=== PATIENT | female | born 1995 | race Hispanic/Latino ===

== ENCOUNTER 2018-09-30 15:25 | Inpatient (IN) | payer MEDICAID, OTHER, SELFPAY ==
[2018-09-30 16:18] VITALS: BMI 36.8
[2018-09-30] MEDS ORDERED: hydrALAZINE 20 MG/ML VIAL SLOW IVP PRN ×2 (16:43→20:31)
--- NOTE | 2018-09-30 16:52 | PDOC.FPROB ---
Addendum entered and electronically signed by Teo Reed DO 09/30/18 18:13 : Correction: Case was discussed with Dr. Smith and Dr. Enrique. Original Note: FMR OB H&P: HPI - History of Present Illness Chief Complaint: Elevated blood pressures History of Present Illness: Pt is a 23 yo female at 39.1wks that was sent from [facility] today for elevated blood pressures. Pt states that she was seen at [facility] for a regular visit at which time they found her to have elevated blood pressures of 145/85 and 1+ protein on urine dip. Pt was subsequently sent here to L&D for further assessment. Pt denies any history of elevated blood pressures prior to or during . She denies any headache, vision changes, CP, SOB, or N/V. She does note that she has had loose stools for the past 6 days but denies any overt diarrhea. This has been complicated by positive chlamydia that was treated and resolved with a test of cure on 09/16. Pt states that has been otherwise uncomplicated. Previous gestation was normal and resulted in a induced NVD post dates. 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 denies: chest pain, palpitation Respiratory: denies: shortness of breath Gastrointestinal: reports: diarrhea (loose stools). denies: abdominal pain, nausea, vomiting Genitourinary (Female): reports: vaginal pressure. denies: incontinence, dysuria, vaginal discharge, vaginal bleeding Integumentary: denies: rash FMR OB H&P: Vital Signs - Maternal Vital signs: 121/69 - Heart Tones Baseline: 140 Variability: moderate Acceleration: absent Deceleration: absent Category: category 1 FMR OB H&P: Physical Exam - Physical Exam General: NAD HEENT: normocephalic and atraumatic, EOMI, grossly normal vision Neck: supple, no JVD Heart: RRR, normal S1/S2, no murmurs/rubs/gallops, pulses present Deviation from normal: 1+ pitting edema to bilateral lower extremities General: CTAB, no respiratory distress Abdomen: soft, gravid, non-tender Musculoskeletal: FROM in all four extremities Neurological: cranial nerves II through XII intact, DTR +2, no clonus Skin: no rash Psychiatric: intact recent and remote memory, good judgement and insight FMR OB H&P: A/P - Problem List (1) Elevated blood pressure affecting in third trimester, antepartum Current Visit: Yes Status: Acute Code(s): O16.3 - UNSPECIFIED MATERNAL HYPERTENSION, THIRD TRIMESTER (2) GERD (gastroesophageal reflux disease) Current Visit: Yes Status: Acute Code(s): K21.9 - GASTRO-ESOPHAGEAL REFLUX DISEASE WITHOUT ESOPHAGITIS (3) Anemia affecting in third trimester Current Visit: Yes Status: Acute Code(s): O99.013 - ANEMIA COMPLICATING , THIRD TRIMESTER Disposition: Elevated blood pressures in - Sent from Clinic for BP 145/85 and 147/85 with 1+ urine on dip - concern for possible pre-e - elevated blood pressure with no severe features - normal BP's here, trend: 128/75, 121/69, 135/84, 123/72 - PRN hydralazine for severe BP's - Ordered CBC, CMP, urine prot/cr - FHT monitoring and NST - will monitor and continue to trend BP's Chlamydia in - test of cure negative 09/16 GERD - cont ranitidine Anemia of - stable - most recent hgb/hct 10.9/32 on 08/14 Dispo: Pending pre-e workup, plan for discharge home if negative Discussion: Date/Time: 09/30/18 1648 This H&P was discussed with Dr. Gastelum and Dr. Enrique who agree with the above documentation and plan. Signature: Teo Reed D.O. PGY1 Addendum - Attending - Attending Attestation Date/Time: 09/30/18 5032 I personally evaluated the patient and discussed the management with Dr. Reed. I agree with the History, Examination, Assessment and Plan documented above.
[2018-09-30 18:06] LABS: Hemoglobin 10.9 g/dL (12.0-16.0); Mean Corpuscular HGB CONC 32.2 g/dL (32.0-36.0); Mean Corpuscular Hemoglobin 26.2 pg (27.0-31.0); Mean Corpuscular Volume 81.6 fL (78.0-98.0); Mean Platelet Volume 10.4 fL (7.4-10.4); Platelet Count 169 thou/uL (130-400); RBC Distribution Width 14.5 % (11.5-14.5); Red Blood Cell (RBC) Count 4.16 mill/uL (4.20-5.40); White Blood Cell (WBC) Count 11.4 thou/uL (4.8-10.8)
[2018-09-30 18:22] LABS: ALT (SGPT) 11 U/L (8-55); AST (SGOT) 16 U/L (5-34); Albumin 3.2 g/dL (3.5-5.0); Alkaline Phosphatase 226 U/L (40-150); Anion Gap 14 mmol/L (10-20); BUN (Urea Nitrogen) 5 mg/dL (7.0-18.7); Bilirubin, Total 0.6 mg/dL (0.2-1.2); Calc. Creatinine Clearance 235 mL/min (70-130); Calcium 9.5 mg/dL (7.8-10.44); Carbon Dioxide 20 mmol/L (22-29); Chloride 105 mmol/L (98-107); Estimated GFR-MDRD Greater than 90; Globulin 3.3 g/dL (2.4-3.5); Glucose 69 mg/dL (70-105); Potassium 3.7 mmol/L (3.5-5.1); Protein, Total 6.5 g/dL (6.0-8.3); Sodium 135 mmol/L (136-145)
[2018-09-30 19:22] LABS: Creatinine, Urine 84.94 mg/dL (47-110)
[2018-09-30] MEDS ORDERED: NS / Oxytocin 40 units/1000ml 1,000 ML IV PRN (20:31)
[2018-09-30] MEDS ORDERED: Lidocaine 1% (PF) 30 ML VIAL SC PRN (20:31)
[2018-09-30] MEDS ORDERED: Ondansetron PF 4 MG/2 ML Vial IVP PRN (20:31)
[2018-09-30] MEDS ORDERED: Promethazine HCl 25 MG/ML VIAL IM PRN (20:31)
[2018-09-30] MEDS ORDERED: Ibuprofen 800 MG TAB PO PRN (20:31)
[2018-09-30] MEDS ORDERED: Misoprostol 100 MCG TAB VAG SCH (20:45)
--- NOTE | 2018-09-30 21:02 | PDOC.EVN ---
Event Note - Event Note Event Note: @ 39.1 wks via LMP & 9.5 wk US is here for elevated BP at clinic and proteinuria. Cervical check @ 1954 was /-3. GBS status for this is unknown; however last she said she was swabbed and it was negative and she received no Abx at delivery. CBC: H&H- 10.9/34, Plt: 169, WBC-11.4 CMP: AST-16, ALT- 11, Cre-0.55 UPEE: 0.4 g/d With elevated BP and urine prot:cr ratio > 0.3, the decision was made for induction of labor for pre-eclampsia. -Admit to L&D -Will do cytotec induction as unfavorable cervix. -Will continue to monitor BP's and if they increase will consider starting mag. GBS unknown, but no indication for abx Addendum - Attending - Attending Attestation Date/Time: 10/01/18 9665 I personally evaluated the patient and discussed the management with Dr. Roth. I agree with the History, Examination, Assessment and Plan documented above.
[2018-09-30] MEDS: Lactated Ringer's 1,000 ML IV SCH (23:00)
[2018-09-30] MEDS: Misoprostol 100 MCG TAB VAG SCH (23:01)
--- NOTE | 2018-09-30 23:10 | PDOC.EVN ---
Event Note - Event Note Event Note: Cervical check is unchanged. Placed Cytotec @ 6183. Will perform another cervical check in 4H.
[2018-09-30 23:54] LABS: HBSAg Index 0.38 S/CO (0-0.99); Hep B Surf Ag Non-Reactive S/CO (NonReactive); Syphilis Antibody Nonreactive (Nonreactive); Syphilis Antibody Index 0.06 S/CO (<1.00 Non-Reactive)
--- NOTE | 2018-10-01 00:18 | PDOC.EVN ---
Event Note - Event Note Event Note: This is an addendum to the previous note. FHT is a Category 1 with moderate variability, accels, and no decels. She is not cindy at this time. Will continue plan of care with cytotec induction. Addendum - Attending - Attending Attestation Date/Time: 10/01/18 5222 I evaluated the patient and discussed the management with Dr. Roth. I agree with the Assessment and Plan documented above.
[2018-10-01] MEDS: Misoprostol 100 MCG TAB VAG SCH ×3 (03:08→06:16)
--- NOTE | 2018-10-01 03:27 | PDOC.LDPN ---
Labor & Delivery Progress Note - Subjective Subjective: comfortable - Objective Vital signs reviewed and normal: yes General: NAD Uterine fundus: non tender SVE: @[address] Roth and Nurse Laisha Dilation: 3 Effacement: 75% Station: -3 FHT: category 1 (Baseline 150, Moderate variability, Accelerations present, No decels) [place] contractions every: 2-4 minutes Procedures: Cytotec placed - Assessment (1) Term Code(s): Z34.90 - ENCNTR FOR SUPRVSN OF NORMAL , UNSP, UNSP TRIMESTER Current Visit: Yes Status: Acute Comment: @ 39.2 wks here for induction due to pre-eclampsia. SVE @ 0530 5/80/-2. 1mg of Stadol given. Patient is having painful contractions and requests an epidural. (2) Pre-eclampsia Code(s): O14.90 - UNSPECIFIED PRE-ECLAMPSIA, UNSPECIFIED TRIMESTER Current Visit: Yes Status: Acute Qualifiers: Trimester: third trimester Qualified Code(s): O14.93 - Unspecified pre- eclampsia, third trimester Comment: Since beginning of induction all BP<140/90. Will continue to monitor. (3) Encounter for induction of labor Code(s): Z34.90 - ENCNTR FOR SUPRVSN OF NORMAL , UNSP, UNSP TRIMESTER Current Visit: Yes Status: Acute Plan: continue plan of care Addendum - Attending - Attending Attestation Date/Time: 10/01/18 0290 I evaluated the patient and discussed the management with Dr. Roth. I agree with the Assessment and Plan documented above.
[2018-10-01] MEDS ORDERED: Butorphanol Tartrate 1 MG/ML VIAL SLOW IVP PRN (05:25)
[2018-10-01] MEDS ORDERED: Butorphanol Tartrate 1 MG/ML VIAL ONE (05:25)
[2018-10-01 05:28] LABS: #Basophils 0.1 thou/uL (0.0-0.2); #Eosinphils 0.2 thou/uL (0.0-0.7); #Monocytes 0.7 thou/uL (0.11-0.59); #Neutrophils 7.7 thou/uL (1.40-6.50); %Basophils 0.5 % (0.0-1.0); %Eosinophils 2.3 % (0.0-10.0); %Lymphocytes 18.6 % (21.0-51.0); %Monocytes 6.8 % (0.0-10.0); %Neutrophils 71.8 % (42.0-75.0); Hemoglobin 10.4 g/dL (12.0-16.0); Mean Corpuscular HGB CONC 31.7 g/dL (32.0-36.0); Mean Corpuscular Hemoglobin 25.8 pg (27.0-31.0); Mean Corpuscular Volume 81.5 fL (78.0-98.0); Mean Platelet Volume 10.8 fL (7.4-10.4); Platelet Count 161 thou/uL (130-400); RBC Distribution Width 14.2 % (11.5-14.5); Red Blood Cell (RBC) Count 4.03 mill/uL (4.20-5.40); White Blood Cell (WBC) Count 10.7 thou/uL (4.8-10.8)
--- NOTE | 2018-10-01 05:46 | PDOC.LDPN ---
Labor & Delivery Progress Note - Subjective Subjective: painful contractions, loss of fluid - Objective General: breathing through contractions Uterine fundus: palpable contractions SVE: @ 0530 Dilation: 5 Effacement: 75% (closer to 80%) Station: -2 FHT: category 1 (Baseline: 130 with moderate variabitlity , acels and variable decels.) [place] contractions every: 1-2 minutes AROM: clear fluid (0520) - Assessment (1) Term Code(s): Z34.90 - ENCNTR FOR SUPRVSN OF NORMAL , UNSP, UNSP TRIMESTER Current Visit: Yes Status: Acute Comment: @ 39.2 wks here for induction due to pre-eclampsia. SVE @ 0530 5/80/-2. 1mg of Stadol given. Patient is having painful contractions and requests an epidural. (2) Pre-eclampsia Code(s): O14.90 - UNSPECIFIED PRE-ECLAMPSIA, UNSPECIFIED TRIMESTER Current Visit: Yes Status: Acute Qualifiers: Trimester: third trimester Qualified Code(s): O14.93 - Unspecified pre- eclampsia, third trimester Comment: Since beginning of induction all BP<140/90. Will continue to monitor. (3) Encounter for induction of labor Code(s): Z34.90 - ENCNTR FOR SUPRVSN OF NORMAL , UNSP, UNSP TRIMESTER Current Visit: Yes Status: Acute Plan: labor augmentation (Pt requests an epidural @ this time.) Addendum - Attending - Attending Attestation Date/Time: 10/01/18 0886 I evaluated the patient and discussed the management with Dr. Roth. I agree with the Assessment and Plan documented above.
[2018-10-01] MEDS ORDERED: Fentanyl 4 mcg/Bup 0.1% Cadd 100 ML ONE (05:47)
[2018-10-01 05:48] LABS: ALT (SGPT) 10 U/L (8-55); AST (SGOT) 14 U/L (5-34); Albumin 3.1 g/dL (3.5-5.0); Alkaline Phosphatase 222 U/L (40-150); Anion Gap 14 mmol/L (10-20); BUN (Urea Nitrogen) 5 mg/dL (7.0-18.7); Bilirubin, Total 0.6 mg/dL (0.2-1.2); Calc. Creatinine Clearance 219 mL/min (70-130); Calcium 9.2 mg/dL (7.8-10.44); Carbon Dioxide 21 mmol/L (22-29); Chloride 106 mmol/L (98-107); Estimated GFR-MDRD Greater than 90; Globulin 3.1 g/dL (2.4-3.5); Glucose 70 mg/dL (70-105); Potassium 3.7 mmol/L (3.5-5.1); Protein, Total 6.2 g/dL (6.0-8.3); Sodium 137 mmol/L (136-145)
[2018-10-01] MEDS: Lactated Ringer's 1,000 ML IV SCH (06:15)
[2018-10-01] MEDS ORDERED: Naloxone HCl 0.4 mg/ml Vial IVP PRN ×2 (06:17)
[2018-10-01] MEDS ORDERED: Lactated Ringer's 500 ML IV PRN (06:17)
[2018-10-01] MEDS ORDERED: Promethazine HCl 25 MG/ML VIAL IM PRN (06:17)
[2018-10-01] MEDS ORDERED: Acetaminophen 325 MG TAB PO PRN (06:17)
[2018-10-01] MEDS ORDERED: ePHEDrine/0.9% NaCl/PF SYRINGE 50 mg/10 ml SLOW IVP PRN (06:17)
[2018-10-01] MEDS ORDERED: Ondansetron PF 4 MG/2 ML Vial IVP PRN (06:17)
[2018-10-01] MEDS ORDERED: diphenhydrAMINE 50 MG/ML VIAL IVP PRN (06:17)
[2018-10-01] MEDS ORDERED: Communication Order-Pharmacy FS SCH (06:30)
[2018-10-01] MEDS ORDERED: Fentanyl 4 mcg/Bupivacaine 0.1% Cassette 100 ML EPIDURAL SCH (06:30)
[2018-10-01] MEDS ORDERED: Lidocaine 1% (PF) 30 ML VIAL ONE (07:59)
[2018-10-01] MEDS ORDERED: NS / Oxytocin 40 units/1000ml 1,000 ML ONE (07:59)
--- NOTE | 2018-10-01 08:09 | PDOC.LDPN ---
Labor & Delivery Progress Note - Subjective Subjective: comfortable - Objective Vital signs reviewed and normal: yes General: NAD, resting Uterine fundus: non tender SVE: at 7:55 AM by Klaus Dilation: 9 Effacement: 100% Station: 2+ FHT: category 1, variable decelerations, variability present [place] contractions every: q2 min Plan: continue plan of care
--- NOTE | 2018-10-01 08:57 | PDOC.OPDEL ---
OB Operative/Delivery Note Delivery Dr/Surgeon: Dr. Reed, Dr. Gomes, Dr. Morales Pre-Delivery Diagnosis: medically indicated induction (for pre-e) Procedure/Post Delivery Dx: spontaneous vaginal delivery Weeks gestation: 39 (39.2) Anesthesia: epidural - Findings A Sex: male Weight: 7 lb 2.288 oz - 1 min: 9 - 5 min: 9 - Additional Findings/Plan Placenta delivered: manual removal Repaired Obstetrical Laceration: other (periurethral and vaginal floor abrasions - no bleeding) Estimated blood loss: 130ml Compilations/Other Findings: Delivering Physician Attending: Procedure: Spontaneous Vaginal Delivery Anesthesia: epidural EBL: 130 ml Pre-op Diagnosis: 1. Term intrauterine in labor 2. Hx of preeclampsia 3. Induction of labor Post-op Diagnosis: 1. Term intrauterine , delivered 2. same as above Indications: A 23y/o female G2 now P2 presents to L&D for induction due to elevated BP and protein/cr ratio Delivery Note: This is 23yo F G2 now P 2 0 0 2 @ 39.2wks who delivered a viable M infant at 0841. Following antepartum course recently complicated by pre-e, a vigorous male was delivered over an intact perineum in the occipitoanterior position. Anterior Shoulder and then remainder of the body delivered. Nuchal cord x1. The head was held down and mouth and nares were bulb suctioned. Cord clamped after delayed cord clamping and cut and cord blood collected. Placenta delivered intact in the [place] presentation with a 3 vessel cord noted. Fundal massage was performed and the fundus was firm. The cervix and vagina were inspected and found to be free of lacerations, small abrasions to vaginal floor and periurethral with no active bleeding. went to nursery in good condition for routine care. Apgars were 9/9 at 1 & 5 minutes, respectively. Patient tolerated delivery well and went to after routine recovery/care. Post delivery plan: routine recovery Addendum - Attending - Attending Attestation Date/Time: 10/02/18 I was present and supervising the 2nd and 3rd stages of labor. I have reviewed and agree with the above documentation.
[2018-10-01] MEDS ORDERED: Benzocaine-Menthol 82.5 ML CAN TOP PRN (09:34)
[2018-10-01] MEDS ORDERED: hydrALAZINE 20 MG/ML VIAL SLOW IVP PRN (09:34)
[2018-10-01] MEDS ORDERED: NS / Oxytocin 40 units/1000ml 1,000 ML IV SCH (09:34)
[2018-10-01] MEDS ORDERED: Bisacodyl 10 MG SUPP PR PRN (09:34)
[2018-10-01] MEDS ORDERED: Adacel (T-DAP) 0.5 ML SYRINGE IM ONE (09:34)
[2018-10-01] MEDS ORDERED: Lanolin Ointment 7 GM TUBE TOP PRN (09:34)
[2018-10-01] MEDS ORDERED: Milk Of Magnesia 30 ML UDCUP PO PRN (09:34)
[2018-10-01] MEDS ORDERED: diphenhydrAMINE 25 MG CAP PO PRN (09:34)
[2018-10-01] MEDS: Ibuprofen 800 MG TAB PO SCH ×2 (12:52→21:24)
[2018-10-01] MEDS: Prenatal Vitamin 1 TAB PO SCH (16:50)
[2018-10-01] MEDS: Docusate Calcium (SURFAK) 240 MG CAP PO SCH ×2 (16:50→21:24)
[2018-10-01] MEDS: Ferrous Sulfate 325 MG TAB PO SCH (17:30)
[2018-10-02] MEDS: Ibuprofen 800 MG TAB PO SCH ×3 (04:58→21:20)
--- NOTE | 2018-10-02 07:47 | PDOC.OBPPN ---
FMR OB PN: Subj - Interval History Hospital Day: 2 Day: 1 Chief Complaint: 23 yo @ 39.2wks s/p IOL for preE and yesterday Indentification: Pt doing well, minimal bleeding, ambulating, toleratind diet. Voiding. Interval History: Stooling, minimal pain, wants to go home tomorrow. FMR OB PN: Obj - Maternal Vital signs: Selected Entries 10/02/18 04:55 Temperature 98.4 F Pulse Rate 89 Blood Pressure 114/64 [Semi-Fowlers] Respiratory 18 Rate FMR OB PN: Exam - Physical Exam General: NAD, awake, alert and oriented HEENT: normocephalic and atraumatic, PERRLA Neck: supple Heart: RRR, normal S1/S2, no murmurs/rubs/gallops, no edema General: CTAB, no respiratory distress, good air movement, no wheezing Abdomen: soft, non-tender Skin: no rash, good tugor Lymphatic: no unusual bruising or bleeding Psychiatric: intact recent and remote memory FMR OB PN: A/P - Problem List (1) Term delivered Current Visit: Yes Status: Acute Code(s): O80 - ENCOUNTER FOR FULL-TERM UNCOMPLICATED DELIVERY (2) (spontaneous vaginal delivery) Current Visit: Yes Status: Acute Code(s): O80 - ENCOUNTER FOR FULL-TERM UNCOMPLICATED DELIVERY (3) Term Current Visit: Yes Status: Acute Code(s): Z34.90 - ENCNTR FOR SUPRVSN OF NORMAL , UNSP, UNSP TRIMESTER Comment: @ 39.2 wks here for induction due to pre-eclampsia. SVE @ 0530 /-2. 1mg of Stadol given. Patient is having painful contractions and requests an epidural. Discussion: Date/Time: 10/02/18 0747 23 yo @39.2wks admitted for IOL for preE, now s/p . sIUP, delivered-continue routine care. Ibuprofen 800mg q8h matty for pain with tylenol prn. Continue regular diet. Stool softener as needed. Will continue to monitor pressures today. DC tomorrow. PreEclampsia-bp's not in severe range, not requiring magnesium. Will monitor overnight and likely dc tomorrow. Fabio Gomes MD, PGY-3 This H&P was discussed with [] and [] who agree with the above documentation and plan. Addendum - Attending - Attending Attestation Date/Time: 10/03/18911 I personally evaluated the patient and discussed the management with Dr. Gomes I agree with the History, Examination, Assessment and Plan documented above with any addition or exceptions noted below.
[2018-10-02] MEDS: Ferrous Sulfate 325 MG TAB PO SCH ×2 (08:14→15:40)
[2018-10-02] MEDS: Docusate Calcium (SURFAK) 240 MG CAP PO SCH ×2 (08:15→21:20)
[2018-10-02] MEDS: Prenatal Vitamin 1 TAB PO SCH (08:15)
[2018-10-02] MEDS ORDERED: Bupivacaine PF 0.5% 30 ML VIAL ONE (11:11)
[2018-10-03] MEDS: Ibuprofen 800 MG TAB PO SCH (06:16)
--- NOTE | 2018-10-03 08:12 | PDOC.OBPPN ---
FMR OB PN: Subj - Interval History Hospital Day: 2 Day: 2 Chief Complaint: 23 yo [id number] s/p . Indentification: Pain controlled. Tolerating normal diet. Voiding. Stooling. Ambulating. Interval History: Minimal bleeding. FMR OB PN: Obj - Maternal Vital signs: Selected Entries 10/02/18 21:20 Temperature 98.2 F Pulse Rate 90 Blood Pressure 131/72 [Semi-Fowlers] Respiratory 18 Rate Oxygen Delivery Room Air Method FMR OB PN: Exam - Physical Exam General: NAD, awake, alert and oriented HEENT: normocephalic and atraumatic Heart: RRR, normal S1/S2, no murmurs/rubs/gallops General: CTAB, no respiratory distress, good air movement Abdomen: soft, non-tender, bowel sound present Skin: no rash, good tugor, capillary refill <2 seconds Psychiatric: intact recent and remote memory FMR OB PN: A/P - Problem List (1) Term delivered Current Visit: Yes Status: Acute Code(s): O80 - ENCOUNTER FOR FULL-TERM UNCOMPLICATED DELIVERY (2) (spontaneous vaginal delivery) Current Visit: Yes Status: Acute Code(s): O80 - ENCOUNTER FOR FULL-TERM UNCOMPLICATED DELIVERY (3) Term Current Visit: Yes Status: Acute Code(s): Z34.90 - ENCNTR FOR SUPRVSN OF NORMAL , UNSP, UNSP TRIMESTER Comment: @ 39.2 wks here for induction due to pre-eclampsia. SVE @ 0530 5/80/-2. 1mg of Stadol given. Patient is having painful contractions and requests an epidural. Discussion: Date/Time: 10/03/18 0810 23 yo @39.2wks admitted for IOL for preE, now s/p . sIUP, delivered-continue routine care. Ibuprofen 800mg q8h matty for pain with tylenol prn. Continue regular diet. Stool softener as needed. Okay for dc today. PreEclampsia-bp's not in severe range, not requiring magnesium. Okay for dc today Fabio Gomes MD, PGY-3 This H&P was discussed with Dr Cabral who agrees.
[2018-10-03] MEDS: Ferrous Sulfate 325 MG TAB PO SCH (09:27)
[2018-10-03] MEDS: Prenatal Vitamin 1 TAB PO SCH (09:32)
[2018-10-03] MEDS: Docusate Calcium (SURFAK) 240 MG CAP PO SCH (09:32)
[2018-10-03 10:44] VITALS: BP 126/61; TEMP 97.6
== END 2018-10-03 12:55 | disposition home or self-care (01) | DRG 806 ==
LOC: L&D/OP 15:25 → L&D 22:44 → 3SW 10-01 16:53
PROVIDERS: ADMIT Obstetrics & Gynecology; ATTEND Obstetrics & Gynecology
PROC: 3E0P7VZ Introduction of Hormone into Female Reproductive, Via Natural or Artificial Opening (ICD-10-PCS; principal; 2018-10-01)
PROC: 10E0XZZ Delivery of Products of Conception, External Approach (ICD-10-PCS; 2018-10-01)
PROC: 3E033VJ Introduction of Other Hormone into Peripheral Vein, Percutaneous Approach (ICD-10-PCS; 2018-10-01)
DX: O14.94 Unspecified pre-eclampsia, complicating childbirth (principal); O98.82 Other maternal infectious and parasitic diseases complicating childbirth; Z37.0 Single live birth; O99.62 Diseases of the digestive system complicating childbirth; O99.02 Anemia complicating childbirth; D64.9 Anemia, unspecified; O71.82 Other specified trauma to perineum and vulva; O69.81X0 Labor and delivery complicated by cord around neck, without compression, not applicable or unspecified; Z3A.39 39 weeks gestation of pregnancy; K21.9 Gastro-esophageal reflux disease without esophagitis
CPT/HCPCS: 36415; 51702; 80053; 82570; 84156; 85025; 85027; 86780; 86850; 86900; 86901; 87340; 99285; J0595; J2001; S0020